=== PATIENT | male | born 1960 | race Caucasian/White ===

== ENCOUNTER → 2018-10-11 10:20 | Day surgery (SDC) | payer BC ==
[~2018-10-11 10:20] MED LIST: Diazepam TAB(*) 5 MG ONE; Heparin 2 UNITS/ML IVPREMIX* 2,000 ML IV ONE; Heparin(*) 1000 UNIT/ML 10 ML VIAL CATH LAB IV ONE; Iohexol 350 (CONTRAST) 200 ML MDV IV ONE; Lidocaine 1% INJ* 10 MG/ML 30 ML SDV ONE; Midazolam* 1 MG/ML 10 ML VIAL (10 MG) ONE; NS 0.9% 1000 ML* 1,000 ML IV SCH; VERAPAMIL 2.5 MG/ML 2 ML VIAL ** 5 mg/2 ml ONE; diPHENhydraMINE PO* 25 MG ONE; fentaNYL* 50 MCG/ML 2 ML VIAL (100 MCG VIAL) ONE; nitroGLYCERIN DRIP* 25,000 MCG/250 ML BTL ONE
[2018-10-11 13:30] VITALS: BP 124/75
--- NOTE | 2018-10-12 17:46 | CATH ---
CC: Dr. Manolo Barajas; Dr. Kodak Fay * CARDIAC CATHETERIZATION: DATE OF PROCEDURE: 10/11/18 - [facility] CATH PROCEDURE: Right wrist catheterization, coronary angiography, left heart catheterization, left ventriculogram. INDICATION: Chest pain, shortness of breath, abnormal stress test. The patient is a 77-year-old gentleman who has a history of hypertension, sleep apnea, who has been having significant shortness of breath with exertion. The patient underwent an exercise stress test with Dr. Barajas. At that time, he exercised for 2 minutes. He had chest pain and severe dyspnea. He had [address]- segment depression. It was a high risk stress test and cardiac catheterization was recommended. DESCRIPTION OF PROCEDURE: The patient was brought to the cardiac catheterization lab in a fasting state. Informed consent had been obtained prior to the procedure. All labs have been reviewed. The patient was placed supine on the catheterization table. His right radial area was prepped and draped in the usual fashion. 1% lidocaine was used for local anesthesia. The right radial artery was entered by a Seldinger technique and a guidewire was placed. Over the guidewire, a 6-Romanian Sheath introducer was placed. A cocktail of heparin, verapamil, and nitroglycerin was infused. The patient underwent coronary angiography using a 6-Romanian AL2 catheter and a 6-Romanian AR1 catheter. A pigtail catheter was used for left ventriculogram. The patient tolerated the procedure well with no complications. A total of 90 cc of Omnipaque dye was used, a total of 9.6-minutes of fluoro time was used. FINDINGS: HEMODYNAMICS: Central aortic blood pressure 122/65 with a mean of 90, left ventricular pressure of 122/5 with an end-diastolic pressure of 14. LEFT VENTRICULOGRAM: Left ventricle was normal in size and systolic function. Estimated ejection fraction 60% to 65%. There are no focal wall-motion abnormalities. There is no mitral regurgitation. Aortic valve and ascending aorta appeared normal. CORONARY ARTERIES: 1. Left main artery: The left main was normal in size that bifurcated into the LAD and circumflex. There was no evidence of stenosis. 2. Left anterior descending artery: The LAD was normal in size. It gave off 1 diagonal vessel. There was no evidence of stenosis. 3. Left circumflex artery: The left circumflex artery was normal in size. It gave off 3 obtuse marginal branches. There is no evidence of stenosis. 4. Right coronary artery: The RCA was a large dominant vessel, gave off the PDA. There was no evidence of stenosis. IMPRESSION: 1. Normal left ventricle size and systolic function. 2. Normal coronary arteries. 3. Successful right radial catheterization. RECOMMENDATIONS: The patient will continue on maximal medical therapy under the direction of Dr. Barajas. [id number]/[facility] #: [id number]
== END | disposition home or self-care (01) ==
LOC: CHICATH 10:20
PROVIDERS: ATTEND Specialist
DX: R07.9 Chest pain, unspecified (principal); R94.39 Abnormal result of other cardiovascular function study; R06.02 Shortness of breath; I20.9 Angina pectoris, unspecified; I10 Essential (primary) hypertension; G47.33 Obstructive sleep apnea (adult) (pediatric); Z72.0 Tobacco use; M10.00 Idiopathic gout, unspecified site; E66.8 Other obesity; F10.20 Alcohol dependence, uncomplicated
CPT/HCPCS: 93458; A9270-GY; C1887; J1644; J2250; J3010